=== PATIENT | female | born 1990 | race Caucasian/White ===

== ENCOUNTER 2023-05-08 22:04 | Emergency (ER) | payer MEDICAID ==
[~2023-05-08] VITALS: Ht 160 cm; Wt 78.5 kg
[2023-05-08 22:32] VITALS: BP 107/75
[2023-05-08 23:04] LABS: Urine Bacteria FEW /hpf (None Seen); Urine Blood Negative /uL (Negative); Urine Specific Gravity 1.004 (1.001-1.035); Urine WBC 3 /hpf (0 - 5)
[2023-05-08 23:12] LABS: Basophils # (auto) 0 10 ^3/uL (0-0.2); Basophils % (auto) 0.2 % (0.0-2.0); Eosinophils # (auto) 0.1 10 ^3/uL (0-0.8); Eosinophils % (auto) 0.6 % (0.0-7.0); Hemoglobin 12.3 g/dL (12.2-16.2); Lymphocytes # (auto) 1.5 10 ^3/uL (0.4-5.4); Lymphocytes % (auto) 14.4 % (10.0-50.0); Mean Corpuscular Hemoglobin 29.6 pg (28.0-32.0); Mean Corpuscular Hgb Conc. 33.1 g/dL (32.0-36.0); Mean Corpuscular Volume 89.4 fL (80.0-100.0); Monocytes # (auto) 1.1 10 ^3/uL (0-1.3); Monocytes % (auto) 10.5 % (0.0-12.0); Neutrophils # (auto) 7.9 10 ^3/uL (1.6-8.6); Neutrophils % (auto) 74.3 % (37.0-80.0); Red Blood Cells 4.14 10^6/uL (4.0-5.20); Red Cell Distribution Width 13.4 % (11.8-14.3); White Blood Cell 10.6 10^3/uL (4.4-10.8)
[2023-05-08 23:21] LABS: Albumin 3.4 g/dL (3.4-5.0); Calcium 8.5 mg/dL (8.5-10.1); Potassium 3.7 mmol/L (3.5-5.1)
[2023-05-08 23:36] LABS: BUN/Creatinine Ratio 6.9 (10.0-20.0); Bilirubin, Total 0.4 mg/dL (0.2-1.0); Total Protein 6.8 g/dL (6.4-8.2)
== END 2023-05-09 05:32 | disposition left against medical advice (07) ==
LOC: ER 22:07
DX: K59.00 Constipation, unspecified (principal); J90 Pleural effusion, not elsewhere classified; R07.89 Other chest pain; R11.2 Nausea with vomiting, unspecified; Z32.02 Encounter for pregnancy test, result negative
CPT/HCPCS: 36415; 71250; 74176; 80053; 81001; 81025; 85025

== ENCOUNTER 2023-05-09 13:55 | Inpatient (IN) | payer MEDICAID ==
[~2023-05-09] VITALS: Ht 160 cm; Wt 80.9 kg
[2023-05-09] MEDS ORDERED: SODIUM CHLORIDE 0.9% 1,000 ML IVB ONE (15:00)
[2023-05-09] MEDS ORDERED: PANTOPRAZOLE 40 MG/10 ML VIAL INJ IV ONE (15:00)
[2023-05-09] MEDS ORDERED: ONDANSETRON HCL 4 MG/2 ML VIAL IV ONE (15:00)
[2023-05-09] MEDS ORDERED: MORPHINE SULFATE 4 MG/ML SYR/VIAL IV ONE (15:00)
[2023-05-09 15:28] LABS: Urine Bacteria FEW /hpf (None Seen); Urine Blood Negative /uL (Negative); Urine Specific Gravity 1.005 (1.001-1.035); Urine WBC 4 /hpf (0 - 5)
[2023-05-09 15:48] LABS: Basophils # (auto) 0 10 ^3/uL (0-0.2); Basophils % (auto) 0.3 % (0.0-2.0); Eosinophils # (auto) 0.1 10 ^3/uL (0-0.8); Eosinophils % (auto) 0.7 % (0.0-7.0); Hematocrit 37.1 % (36.0-46.0); Hemoglobin 12.3 g/dL (12.2-16.2); Lymphocytes # (auto) 1.5 10 ^3/uL (0.4-5.4); Lymphocytes % (auto) 14.7 % (10.0-50.0); Mean Corpuscular Hgb Conc. 33.2 g/dL (32.0-36.0); Mean Corpuscular Volume 90.4 fL (80.0-100.0); Monocytes # (auto) 1.1 10 ^3/uL (0-1.3); Monocytes % (auto) 10.5 % (0.0-12.0); Neutrophils # (auto) 7.6 10 ^3/uL (1.6-8.6); Neutrophils % (auto) 73.8 % (37.0-80.0); Nucleated Red Blood Cells % 0.1 %; Red Cell Distribution Width 13.5 % (11.8-14.3); White Blood Cell 10.3 10^3/uL (4.4-10.8)
[2023-05-09 15:59] LABS: Albumin 3.2 g/dL (3.4-5.0); BUN/Creatinine Ratio 7.2 (10.0-20.0); Calcium 8.4 mg/dL (8.5-10.1); Potassium 4.2 mmol/L (3.5-5.1)
[2023-05-09 16:03] LABS: Bilirubin, Total 0.6 mg/dL (0.2-1.0); Total Protein 6.4 g/dL (6.4-8.2)
[2023-05-09 19:12] LABS: INR 1.04 (0.9-1.15)
[2023-05-09 19:59] LABS: INR 1.05 (0.9-1.15)
[2023-05-09] MEDS ORDERED: IOHEXOL 350 MG/ML 100ML IJ ONE (20:24)
[2023-05-09] MEDS: HYDROcodone-ACET 5/325MG TAB PO PRN (23:15)
[2023-05-09] MEDS: metroNIDAZOLE 500MG/100ML 100 ML IV SCH (23:16)
[2023-05-09] MEDS: SODIUM CHLORIDE 0.9% 1,000 ML IV SCH (23:16)
[2023-05-10] MEDS: SODIUM CHLORIDE 0.9% 1,000 ML IV SCH ×3 (03:05→20:40)
[2023-05-10] MEDS: metroNIDAZOLE 500MG/100ML 100 ML IV SCH ×3 (06:43→22:55)
[2023-05-10 06:58] LABS: Basophils # (auto) 0.1 10 ^3/uL (0-0.2); Basophils % (auto) 0.6 % (0.0-2.0); Eosinophils # (auto) 0.1 10 ^3/uL (0-0.8); Eosinophils % (auto) 1.5 % (0.0-7.0); Hematocrit 34.8 % (36.0-46.0); Hemoglobin 11.7 g/dL (12.2-16.2); Lymphocytes # (auto) 1.5 10 ^3/uL (0.4-5.4); Lymphocytes % (auto) 16.2 % (10.0-50.0); Mean Corpuscular Hemoglobin 30.3 pg (28.0-32.0); Mean Corpuscular Hgb Conc. 33.7 g/dL (32.0-36.0); Mean Corpuscular Volume 90.1 fL (80.0-100.0); Monocytes # (auto) 0.9 10 ^3/uL (0-1.3); Monocytes % (auto) 10.1 % (0.0-12.0); Neutrophils # (auto) 6.5 10 ^3/uL (1.6-8.6); Neutrophils % (auto) 71.6 % (37.0-80.0); Nucleated Red Blood Cells % 0.1 %; Red Blood Cells 3.86 10^6/uL (4.0-5.20); Red Cell Distribution Width 13.1 % (11.8-14.3)
[2023-05-10 07:21] LABS: Albumin 3.4 g/dL (3.4-5.0); Calcium 8.2 mg/dL (8.5-10.1)
[2023-05-10 07:26] LABS: BUN/Creatinine Ratio 8.2 (10.0-20.0); Bilirubin, Total 0.6 mg/dL (0.2-1.0); Total Protein 7.1 g/dL (6.4-8.2)
[2023-05-10] MEDS: HYDROcodone-ACET 5/325MG TAB PO PRN ×2 (07:26→09:50)
[2023-05-10] MEDS: PANTOPRAZOLE 40 MG/10 ML VIAL INJ IV SCH (11:11)
[2023-05-10] MEDS: cefTRIAXone 1GM/50ML D5W 50 ML IV SCH ×2 (11:12→15:21)
[2023-05-10] MEDS: MORPHINE SULFATE INJ 2 MG/ml SYRG IV PRN (15:15)
[2023-05-10] MEDS ORDERED: DOCUSATE SOD 100 MG CAP PO ONE (21:30)
[2023-05-10 23:00] VITALS: BP 133/80
[2023-05-11 05:00] VITALS: BP 125/64
[2023-05-11] MEDS: HYDROcodone-ACET 5/325MG TAB PO PRN ×3 (05:11→18:52)
[2023-05-11 05:37] LABS: Basophils # (auto) 0 10 ^3/uL (0-0.2); Basophils % (auto) 0.4 % (0.0-2.0); Eosinophils # (auto) 0.2 10 ^3/uL (0-0.8); Hematocrit 33.8 % (36.0-46.0); Hemoglobin 11.3 g/dL (12.2-16.2); Lymphocytes # (auto) 0.8 10 ^3/uL (0.4-5.4); Lymphocytes % (auto) 10.3 % (10.0-50.0); Mean Corpuscular Hemoglobin 30.4 pg (28.0-32.0); Mean Corpuscular Hgb Conc. 33.4 g/dL (32.0-36.0); Mean Corpuscular Volume 90.8 fL (80.0-100.0); Monocytes # (auto) 0.7 10 ^3/uL (0-1.3); Monocytes % (auto) 9.2 % (0.0-12.0); Neutrophils # (auto) 6.2 10 ^3/uL (1.6-8.6); Neutrophils % (auto) 78.1 % (37.0-80.0); Red Blood Cells 3.72 10^6/uL (4.0-5.20); Red Cell Distribution Width 13.2 % (11.8-14.3); White Blood Cell 7.9 10^3/uL (4.4-10.8)
[2023-05-11 05:50] LABS: Potassium 4.2 mmol/L (3.5-5.1)
[2023-05-11 06:00] LABS: Albumin 2.9 g/dL (3.4-5.0); BUN/Creatinine Ratio 9.2 (10.0-20.0); Bilirubin, Total 0.3 mg/dL (0.2-1.0); Calcium 8.3 mg/dL (8.5-10.1); Total Protein 5.6 g/dL (6.4-8.2)
[2023-05-11] MEDS: metroNIDAZOLE 500MG/100ML 100 ML IV SCH ×3 (06:26→21:27)
[2023-05-11] MEDS: DOCUSATE SOD 100 MG CAP PO SCH ×2 (06:26→08:54)
[2023-05-11] MEDS: SODIUM CHLORIDE 0.9% 1,000 ML IV SCH ×3 (06:26→20:56)
[2023-05-11 08:00] VITALS: BP 106/58
[2023-05-11] MEDS: PANTOPRAZOLE 40 MG/10 ML VIAL INJ IV SCH (08:53)
[2023-05-11] MEDS: cefTRIAXone 1GM/50ML D5W 50 ML IV SCH (08:54)
[2023-05-11 09:24] VITALS: BP 106/58
[2023-05-11] MEDS ORDERED: DOCUSATE SOD 100 MG CAP PO ONE (09:30)
[2023-05-11] MEDS ORDERED: FLEET ENEMA(ADULT) 135 ML PR ONE (09:30)
[2023-05-11] MEDS ORDERED: DOCUSATE SOD 100 MG CAP PO PRN (09:30)
[2023-05-11] MEDS: ONDANSETRON HCL 4 MG/2 ML VIAL IV PRN (12:04)
[2023-05-11] MEDS: LACTULOSE 20Gm/30ML SOLN PO SCH (12:04)
[2023-05-11 14:01] VITALS: BP 135/78
[2023-05-11 17:22] VITALS: BP 128/69
[2023-05-11 22:00] VITALS: BP 99/58
[2023-05-11] MEDS: MORPHINE SULFATE INJ 2 MG/ml SYRG IV PRN (23:52)
[2023-05-12 05:00] VITALS: BP 140/71
[2023-05-12] MEDS: SODIUM CHLORIDE 0.9% 1,000 ML IV SCH (06:08)
[2023-05-12] MEDS: metroNIDAZOLE 500MG/100ML 100 ML IV SCH ×3 (06:08→22:42)
[2023-05-12] MEDS: ONDANSETRON HCL 4 MG/2 ML VIAL IV PRN ×2 (07:44→14:09)
[2023-05-12] MEDS: HYDROcodone-ACET 5/325MG TAB PO PRN ×3 (07:44→22:41)
[2023-05-12] MEDS: PANTOPRAZOLE 40 MG/10 ML VIAL INJ IV SCH (08:35)
[2023-05-12] MEDS: LACTULOSE 20Gm/30ML SOLN PO SCH (08:35)
[2023-05-12] MEDS: cefTRIAXone 1GM/50ML D5W 50 ML IV SCH (08:36)
[2023-05-12 08:50] LABS: Basophils # (auto) 0 10 ^3/uL (0-0.2); Basophils % (auto) 0.4 % (0.0-2.0); Eosinophils # (auto) 0.2 10 ^3/uL (0-0.8); Eosinophils % (auto) 2.9 % (0.0-7.0); Hemoglobin 11.5 g/dL (12.2-16.2); Lymphocytes # (auto) 1.2 10 ^3/uL (0.4-5.4); Mean Corpuscular Hemoglobin 29.7 pg (28.0-32.0); Mean Corpuscular Hgb Conc. 32.9 g/dL (32.0-36.0); Mean Corpuscular Volume 90.3 fL (80.0-100.0); Monocytes # (auto) 0.7 10 ^3/uL (0-1.3); Monocytes % (auto) 8.5 % (0.0-12.0); Neutrophils # (auto) 5.9 10 ^3/uL (1.6-8.6); Neutrophils % (auto) 73.2 % (37.0-80.0); Nucleated Red Blood Cells % 0.1 %; Red Blood Cells 3.88 10^6/uL (4.0-5.20); Red Cell Distribution Width 13.3 % (11.8-14.3)
[2023-05-12 09:00] VITALS: BP 145/83
[2023-05-12 09:21] LABS: Albumin 2.9 g/dL (3.4-5.0); Magnesium 2.4 mg/dL (1.6-2.6); Potassium 3.3 mmol/L (3.5-5.1)
[2023-05-12 09:29] LABS: BUN/Creatinine Ratio 6.4 (10.0-20.0); Bilirubin, Total 0.2 mg/dL (0.2-1.0); CRP High Sensitivity 0.78 mg/dL (< 0.3); Total Protein 6.1 g/dL (6.4-8.2); Uric Acid 5.7 mg/dL (2.6-6.0)
[2023-05-12] MEDS ORDERED: POTASSIUM CHL 20 Meq TABLET PO ONE (11:30)
[2023-05-12 13:00] VITALS: BP 127/80
[2023-05-12 13:06] LABS: Urine Bacteria FEW /hpf (None Seen); Urine Blood Negative /uL (Negative); Urine Mucus FEW (None Seen); Urine Specific Gravity 1.007 (1.001-1.035); Urine WBC 26 /hpf (0 - 5)
[2023-05-12] MEDS ORDERED: LACTULOSE 20Gm/30ML SOLN PO ONE (13:45)
[2023-05-12] MEDS: MAALOX PLUS or MAALOX 30 ML PO PRN ×2 (14:08→22:41)
[2023-05-12] MEDS: D5W/SOD CHL 0.9%/KCL 40MEQ 1,000 ML IV SCH ×2 (14:20→22:44)
[2023-05-12 15:25] LABS: Protein, Urine 21.8 mg/dL (0.0-11.9)
[2023-05-12 17:00] VITALS: BP 122/80
[2023-05-12 22:00] VITALS: BP 117/52
[2023-05-13 05:00] VITALS: BP 123/70
[2023-05-13] MEDS: metroNIDAZOLE 500MG/100ML 100 ML IV SCH ×3 (05:44→21:02)
[2023-05-13] MEDS: D5W/SOD CHL 0.9%/KCL 40MEQ 1,000 ML IV SCH (07:30)
[2023-05-13 08:50] LABS: Basophils # (auto) 0 10 ^3/uL (0-0.2); Basophils % (auto) 0.4 % (0.0-2.0); Eosinophils # (auto) 0.3 10 ^3/uL (0-0.8); Eosinophils % (auto) 3.5 % (0.0-7.0); Hematocrit 34.5 % (36.0-46.0); Hemoglobin 11.4 g/dL (12.2-16.2); Lymphocytes # (auto) 1.3 10 ^3/uL (0.4-5.4); Lymphocytes % (auto) 14.6 % (10.0-50.0); Mean Corpuscular Hemoglobin 29.8 pg (28.0-32.0); Mean Corpuscular Volume 90.5 fL (80.0-100.0); Monocytes # (auto) 0.8 10 ^3/uL (0-1.3); Monocytes % (auto) 9.3 % (0.0-12.0); Neutrophils # (auto) 6.2 10 ^3/uL (1.6-8.6); Neutrophils % (auto) 72.2 % (37.0-80.0); Nucleated Red Blood Cells % 0.2 %; Red Blood Cells 3.81 10^6/uL (4.0-5.20); Red Cell Distribution Width 13.4 % (11.8-14.3); White Blood Cell 8.5 10^3/uL (4.4-10.8)
[2023-05-13 09:16] LABS: Albumin 3.2 g/dL (3.4-5.0); Calcium 8.5 mg/dL (8.5-10.1); Magnesium 2.5 mg/dL (1.6-2.6); Potassium 3.6 mmol/L (3.5-5.1)
[2023-05-13 09:18] LABS: Bilirubin, Total 0.3 mg/dL (0.2-1.0); Total Protein 6.8 g/dL (6.4-8.2)
[2023-05-13 09:21] VITALS: BP 150/82
[2023-05-13] MEDS: PANTOPRAZOLE 40 MG/10 ML VIAL INJ IV SCH (09:45)
[2023-05-13] MEDS: cefTRIAXone 1GM/50ML D5W 50 ML IV SCH (09:45)
[2023-05-13] MEDS: LACTULOSE 20Gm/30ML SOLN PO SCH (09:46)
[2023-05-13] MEDS: ONDANSETRON HCL 4 MG/2 ML VIAL IV PRN (10:10)
[2023-05-13] MEDS: D5W 5% 1,000 ML IV SCH (11:35)
[2023-05-13 12:30] LABS: Urine Bacteria NONE SEEN /hpf (None Seen); Urine Blood Negative /uL (Negative); Urine Specific Gravity 1.006 (1.001-1.035); Urine WBC 1 /hpf (0 - 5)
[2023-05-13 13:00] VITALS: BP 130/75
[2023-05-13] MEDS ORDERED: ERGOCALCIFEROL 50,000 UNIT(1.25MG) CAP PO SCH (14:00)
[2023-05-13] MEDS: MAALOX PLUS or MAALOX 30 ML PO PRN ×2 (14:03→21:01)
[2023-05-13 17:08] VITALS: BP 150/66
[2023-05-13] MEDS: HYDROcodone-ACET 5/325MG TAB PO PRN (21:01)
[2023-05-13 22:00] VITALS: BP 134/83
[2023-05-14] MEDS: ONDANSETRON HCL 4 MG/2 ML VIAL IV PRN (03:17)
[2023-05-14] MEDS: HYDROcodone-ACET 5/325MG TAB PO PRN (03:17)
[2023-05-14] MEDS: D5W 5% 1,000 ML IV SCH ×2 (03:28→13:25)
[2023-05-14 05:00] VITALS: BP 113/74
[2023-05-14] MEDS: metroNIDAZOLE 500MG/100ML 100 ML IV SCH ×3 (06:29→21:15)
[2023-05-14 07:21] LABS: BUN/Creatinine Ratio 4.8 (10.0-20.0); Calcium 8.1 mg/dL (8.5-10.1); Potassium 3.5 mmol/L (3.5-5.1)
[2023-05-14] MEDS: cefTRIAXone 1GM/50ML D5W 50 ML IV SCH (08:25)
[2023-05-14] MEDS ORDERED: ACETAMINOPHEN 325 MG TAB PO PRN (08:30)
[2023-05-14 08:46] VITALS: BP 136/72
[2023-05-14] MEDS: LACTULOSE 20Gm/30ML SOLN PO SCH (10:00)
[2023-05-14] MEDS ORDERED: POTASSIUM CHL 20 Meq TABLET PO ONE (10:00)
[2023-05-14] MEDS: PANTOPRAZOLE 40 MG/10 ML VIAL INJ IV SCH (11:01)
[2023-05-14] MEDS: MAALOX PLUS or MAALOX 30 ML PO PRN (11:04)
[2023-05-14 13:00] VITALS: BP 117/78
[2023-05-14 14:28] LABS: BUN/Creatinine Ratio 3.7 (10.0-20.0); Calcium 7.9 mg/dL (8.5-10.1); Potassium 3.4 mmol/L (3.5-5.1)
[2023-05-14 17:00] VITALS: BP 112/78
[2023-05-14 22:00] VITALS: BP 103/64
[2023-05-15 05:00] VITALS: BP 130/77
[2023-05-15] MEDS: D5W 5% 1,000 ML IV SCH ×2 (06:01→16:05)
[2023-05-15] MEDS: metroNIDAZOLE 500MG/100ML 100 ML IV SCH ×2 (06:02→13:41)
[2023-05-15 08:55] VITALS: BP 123/76
[2023-05-15] MEDS: PANTOPRAZOLE 40 MG/10 ML VIAL INJ IV SCH (09:49)
[2023-05-15] MEDS: cefTRIAXone 1GM/50ML D5W 50 ML IV SCH (09:50)
[2023-05-15 09:58] LABS: Potassium 3.2 mmol/L (3.5-5.1)
[2023-05-15] MEDS: MAALOX PLUS or MAALOX 30 ML PO PRN (09:59)
[2023-05-15] MEDS: LACTULOSE 20Gm/30ML SOLN PO SCH (09:59)
[2023-05-15 10:02] LABS: BUN/Creatinine Ratio 4.7 (10.0-20.0); Calcium 8.4 mg/dL (8.5-10.1)
[2023-05-15] MEDS ORDERED: GADOTERATE MEG 10 MMOL/20ml INJ (0.5MMOL/ml) IV ONE (10:56)
[2023-05-15] MEDS ORDERED: POTASSIUM CHL 20 Meq TABLET PO ONE (11:30)
[2023-05-15 12:00] VITALS: BP 127/67
[2023-05-15] MEDS ORDERED: ERGO1CAP23 PO (13:43)
[2023-05-15 16:00] VITALS: BP 127/81
[2023-05-15] MEDS ORDERED: metroNIDAZOLE 500 MG TAB PO SCH (22:00)
== END 2023-05-15 18:00 | disposition home or self-care (01) | DRG 691 ==
LOC: ER 13:55 → OVERFLOW 18:44 → CENTRAL 05-10 21:20
PROVIDERS: ADMIT Nurse Practitioner Family; ATTEND Internal Medicine
DX: C85.99 Non-Hodgkin lymphoma, unspecified, extranodal and solid organ sites (principal); N17.0 Acute kidney failure with tubular necrosis; K76.0 Fatty (change of) liver, not elsewhere classified; E87.1 Hypo-osmolality and hyponatremia; K56.7 Ileus, unspecified; K82.8 Other specified diseases of gallbladder; E86.0 Dehydration; E66.9 Obesity, unspecified; E55.9 Vitamin D deficiency, unspecified; E28.2 Polycystic ovarian syndrome; N18.2 Chronic kidney disease, stage 2 (mild); R80.9 Proteinuria, unspecified; Z79.84 Long term (current) use of oral hypoglycemic drugs; Z83.3 Family history of diabetes mellitus; Z68.31 Body mass index [BMI] 31.0-31.9, adult
CPT/HCPCS: 36415; 74176; 74183; 76705; 76775; 80048; 80053; 81001; 82306; 82570; 83036; 83516; 83520; 83605; 83615; 83690; 83735; 83930; 83935; 84156; 84300; 84443; 84550; 84702; 85025; 85301; 85610; 85652; 85730; 86141; 86225; 86235; 86256; 86431; 86850; 86900; 86901; 96361; 96374; 96375; C9113; G0378; J0696; J2405; J3490